=== PATIENT | male | born 1995 | race Caucasian/White ===

== ENCOUNTER 2017-04-15 17:18 | Emergency (ER) | payer OTHER ==
[~2017-04-15] VITALS: Ht 182.9 cm; Wt 63.5 kg
[~2017-04-15 17:18] MED LIST: ADDERALL PO; CLONIDINE PO; ELIMITE60 GM TOP; NO MEDICATIONS; VYVANSE70 MG PO
== END 2017-04-15 17:55 | disposition home or self-care (01) ==
LOC: SED 17:18
DX: S71.111D Laceration without foreign body, right thigh, subsequent encounter (principal); F17.210 Nicotine dependence, cigarettes, uncomplicated; W45.8XXD Other foreign body or object entering through skin, subsequent encounter
CPT/HCPCS: 99281